=== PATIENT | male | born 1955 | race Caucasian/White ===

== ENCOUNTER → 2024-06-26 09:28 | Outpatient (REF) | payer MEDICARE, SELFPAY | LOC: RCS 09:28 | PROVIDERS: ATTENDING PHYSICIAN Internal Medicine Cardiovascular Disease; FAMILY PHYSICIAN Family Medicine | DX: I42.9 Cardiomyopathy, unspecified (principal); I25.10 Atherosclerotic heart disease of native coronary artery without angina pectoris; Z86.73 Personal history of transient ischemic attack (TIA), and cerebral infarction without residual deficits | CPT/HCPCS: 93306; 93356 ==

== ENCOUNTER → 2024-08-09 09:57 | Outpatient (REF) | payer MEDICARE, SELFPAY | LOC: HWRAD 09:57 | PROVIDERS: ATTENDING PHYSICIAN Internal Medicine Hematology & Oncology; FAMILY PHYSICIAN Family Medicine | DX: M85.80 Other specified disorders of bone density and structure, unspecified site (principal); M81.0 Age-related osteoporosis without current pathological fracture | CPT/HCPCS: 77080 ==